=== PATIENT | female | born 1990 | race Caucasian/White ===

== ENCOUNTER 2017-09-18 10:53 | Inpatient (IN) | payer MEDICAID ==
[2017-09-18] MEDS ORDERED: Lactated Ringers 1,000 ML IV ONE (11:45)
[2017-09-18] MEDS ORDERED: Sodium Chloride 0.9% 10 ML Syringe FLUSH PRN (11:58)
[2017-09-18] MEDS ORDERED: Nalbuphine 10 MG/1 ML Vial IVPUSH PRN (12:29)
[2017-09-18] MEDS ORDERED: Ampicillin 2 GM in Sodium Chloride 0.9% 100 ML IV ONE (12:30)
--- NOTE | 2017-09-18 12:39 | PCM.HP ---
H&P History of Present Illness - General Date of Service: 09/18/17 Admit Problem/Dx: Admission Diagnosis/Problem Admission Diagnosis/Problem labor Source of Information: Patient History Limitations: Reports: No Limitations - History of Present Illness Initial Comments - Free Text/Narative: This a 26-year-old G4 para 3 currently with a due date from ultrasound 122/ which makes her 36 weeks and 4 days. She came in last night with abdominal pain. She was examined she was not denice and her cervix is 4 cm. She was given some morphine sent home. She says she was better and then today started to come back in with cramping and abdominal pain. She denies any vaginal bleeding. She says the baby is moving less than before. She is a one pack-a-day smoker. He doesn't not remember what labor felt like. The contractions are rhythmic. Uterine Pain Score (Numeric/FACES): 8 - Related Data Allergies/Adverse Reactions: Allergies Allergy/AdvReac Type Severity Reaction Status Date / Time No Known Allergies Allergy Verified 10/22/16 21:33 Home Medications: Home Meds Ibuprofen 800 mg PO Q8HR #30 tablet 05/30/15 [Rx] Amoxicillin/Potassium Clav [Augmentin 875-125 Tablet] 1 each PO BID #20 tablet 10/22/16 [Rx] Gabapentin [Neurontin] 600 mg PO DAILY 10/22/16 [History] buPROPion [Wellbutrin] 75 mg PO BEDTIME 10/22/16 [History] Past Medical History - Past Health History Medical/Surgical History: Denies Medical/Surgical History 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: smokes [employer] History: Reports: Psychiatric History: Reports: ADHD, Anxiety, Bipolar, Depression, PTSD Other Dermatologic History: 5 tattoos to the body surface Social & Family History - Family History Family Medical History: Noncontributory - Tobacco Use Smoking Status *Q: Current Every Day Smoker Years of Tobacco use: 10 Packs/Tins Daily: 1 Used Tobacco, but Quit: No Second Hand Smoke Exposure: Yes - Caffeine Use Caffeine Use: Reports: Coffee Other Caffeine Use: 2 cups of coffee - Alcohol Use Days Per Week of Alcohol Use: 1 Number of Drinks Per Day: 1 Total Drinks Per Week: 1 Date of Last Drink: 09/17/17 Time of Last Drink: 20:00 - Recreational Drug Use Recreational Drug Use: Yes Drug Use in Last 12 Months: No Recreational Drug Type: Reports: Marijuana/Hashish Other Recreational Drug Type: Pt reports she hasn't used in 3 years Recreational Drug Use Frequency: Not Used In Over 6 Months Recreational Drug Last Use: 4 - Living Situation & Occupation Living situation: Reports: Single Occupation: Employed H&P Review of Systems - Review of Systems: Review Of Systems: See Below General: Reports: No Symptoms HEENT: Reports: No Symptoms Pulmonary: Reports: No Symptoms Cardiovascular: Reports: No Symptoms Gastrointestinal: Reports: Other (See history of present illness) Genitourinary: Reports: No Symptoms Musculoskeletal: Reports: No Symptoms Psychiatric: Reports: Depression, Anxiety Neurological: Reports: No Symptoms Exam - Exam Exam: See Below - Vital Signs Vital Signs: Last Vital Signs Temp 97.1 F 09/18/17 11:02 Pulse 90 09/18/17 11:02 Resp 16 09/18/17 11:02 BP 115/70 09/18/17 11:02 Pulse Ox 98 09/18/17 11:02 Weight: 140 lb - Exam General: Alert, Oriented, Cooperative, Moderate Distress HEENT: Other (Head normocephalic/atraumatic) Neck: Supple Lungs: Clear to Auscultation, Normal Respiratory Effort Cardiovascular: Regular Rate, Regular Rhythm, Normal S1 GI/Abdominal Exam: Other (Abdomen is gravid. Not able to locate position at this time.) (Female) Exam: Other (Cervix-3/70/-3.) Back Exam: Normal Inspection, Full Range of Motion Extremities: No Pedal Edema Skin: Warm, Dry, Intact Neurological: Normal Speech, Normal Tone Neuro Extensive - Mental Status: Alert, Oriented x3, Normal Cognition, Memory Intact Neuro Extensive - Motor, Sensory, Reflexes: Normal Gait Psychiatric: Alert *Q Meaningful Use (ADM) - VTE *Q VTE Criteria *Q: - Stroke *Q Stroke Criteria *Q: - AMI *Q AMI Criteria *Q: - Problem List (1) Uterine contractions SNOMED Code(s): 232956799 ICD Code: [id number] - Status: Acute Current Visit: No Problem Details: delivered yesterday Problem List Initiated/Reviewed/Updated: Yes Orders Last 24hrs: Active Orders 24 hr Category Date Time Status Admission Status [Patient Status] [ADT] Routine ADT 09/18/17 10:58 Active CBC WITH AUTO DIFF [HEME] Routine Lab 09/18/17 12:32 Ordered CULTURE GROUP B STREP [RM] Routine Lab 09/18/17 12:32 Uncollected Ampicillin 1 gm Med 09/18/17 16:00 Active Sodium Chloride 0.9% [Normal Saline] 100 ml IV Q4H Ampicillin 2 gm Med 09/18/17 12:30 Active Sodium Chloride 0.9% [Normal Saline] 100 ml IV ONETIME Lactated Ringers [Ringers, Lactated] 1,000 ml Med 09/18/17 11:45 Active IV BOLUS Nalbuphine [Nubain] Med 09/18/17 12:29 Active 10 mg IVPUSH Q3H PRN Sodium Chloride 0.9% [Saline Flush] Med 09/18/17 11:58 Active 10 ml FLUSH ASDIRECTED PRN Peripheral IV Insertion Adult [OM.PC] Routine Oth 09/18/17 11:58 Ordered Medication Orders Lactated Ringer's (Ringers, Lactated) 1,000 mls @ 999 mls/hr IV BOLUS ONE Stop: 09/18/17 12:45 Ampicillin Sodium 2 gm/ Sodium (Chloride) 100 mls @ 200 mls/hr IV ONETIME ONE Stop: 09/18/17 12:59 Ampicillin Sodium 1 gm/ Sodium (Chloride) 100 mls @ 200 mls/hr IV Q4H IVANA Nalbuphine HCl (Nubain) 10 mg IVPUSH Q3H PRN PRN Reason: Pain Sodium Chloride (Saline Flush) 10 ml FLUSH ASDIRECTED PRN PRN Reason: Keep Vein Open Assessment/Plan Comment:: Multipara 36-4/7. Possible early labor. Plan is to give her some Nubain 10 mg IV every 3 hours and then recheck her cervix. It does appear that she's having a uterine rupture at this time. I do not have ultrasound available. I need to see the physician. So I will get a 1 view of the abdomen. I was able to get her ultrasound from [facility] and blood type. She also had one visit with me and I printed that off. I will order syphilis, rubella, HIV, CBC. We will check just make sure that we have coverage. Will hydrate her. Ampicillin 2 g IV and 1 g every 4 hours for beta strep prophylaxis. We will go ahead and do the beta strep anyway. If it doesn't appear that she is going to labor we will DC these orders and send her home.
[2017-09-18] MEDS ORDERED: Lactated Ringers 1,000 ML IV SCH ×2 (13:15→15:45)
[2017-09-18] MEDS ORDERED: ePHEDrine 50 MG/ML SDV IVPUSH ONE (15:37)
[2017-09-18] MEDS ORDERED: Naloxone 0.4 MG/ML SDV IVPUSH PRN ×2 (15:38→17:16)
[2017-09-18] MEDS ORDERED: fentaNYL 300 MCG in Ropivacaine 200 ML IV ONE (15:50)
[2017-09-18] MEDS ORDERED: fentaNYL 100 MCG/2 ML SDV EPIDUR ONE (15:50)
[2017-09-18] MEDS ORDERED: Ampicillin 1 GM in Sodium Chloride 0.9% 100 ML IV SCH (16:00)
--- NOTE | 2017-09-18 17:13 | PCM.PNLD ---
Labor Progress Note - VS & Meds Vital Signs: Last Vital Signs Temp 97.1 F 09/18/17 11:02 Pulse 90 09/18/17 11:02 Resp 16 09/18/17 11:02 BP 115/70 09/18/17 11:02 Pulse Ox 98 09/18/17 11:02 Active Medications: Current Medications Ampicillin Sodium 1 gm/ Sodium (Chloride) 100 mls @ 200 mls/hr IV Q4H IVANA Last Admin: 09/18/17 15:52 Dose: 200 mls/hr Lactated Ringer's (Ringers, Lactated) 1,000 mls @ 125 mls/hr IV ASDIRECTED IVANA Last Admin: 09/18/17 15:52 Dose: 125 mls/hr Nalbuphine HCl (Nubain) 10 mg IVPUSH Q3H PRN PRN Reason: Pain Last Admin: 09/18/17 13:31 Dose: 10 mg Naloxone HCl (Narcan) 0.1 mg IVPUSH ONETIME PRN PRN Reason: Oversedation Sodium Chloride (Saline Flush) 10 ml FLUSH ASDIRECTED PRN PRN Reason: Keep Vein Open Last Admin: 09/18/17 15:53 Dose: 10 ml Discontinued Medications Ephedrine Sulfate (Ephedrine Sulfate) 5 mg IVPUSH ONETIME ONE Stop: 09/18/17 15:38 Lactated Ringer's (Ringers, Lactated) 1,000 mls @ 999 mls/hr IV BOLUS ONE Stop: 09/18/17 12:45 Last Admin: 09/18/17 11:45 Dose: 999 mls/hr Ampicillin Sodium 2 gm/ Sodium (Chloride) 100 mls @ 200 mls/hr IV ONETIME ONE Stop: 09/18/17 12:59 Last Admin: 09/18/17 13:30 Dose: 200 mls/hr Lactated Ringer's (Ringers, Lactated) 1,000 mls @ 999 mls/hr IV BOLUS IVANA Stop: 09/18/17 14:16 Last Admin: 09/18/17 13:33 Dose: 999 mls/hr - Uterine Contractions Uterine Monitoring Mode: External [place] Contraction Frequency (min): 1-2 Contraction Duration (sec): 40-70 Contraction Intensity: Moderate Uterine Resting Tone: Soft - Vaginal Exam Dilation (cm): 6 Effacement (Percent): 90 Station: 0 Cervical Position: Midposition Sterile Vaginal Exam Performed By: Caroline Alcantar - Labor Progress (Free Text) Labor Progress: Patient's cervix 6/80/0 station. Patient has declared herself as being in labor. AROM with slightly off colored amniotic fluid. I did discuss with the patient that she is 36 4/7 weeks. I told her we deliver after 36 weeks but there is a small wrist the baby would be transferred to [place]. She understands. She also wanting a cigarette. I'm trying to hold her off at this point. If she does poorly may consider a patch. Epidural was placed. She has received her antibiotics. And we DC'd [place].
[2017-09-18] MEDS ORDERED: diphenhydrAMINE 50 MG/ML SDV IVPUSH PRN (17:16)
[2017-09-18] MEDS ORDERED: ePHEDrine 50 MG/ML SDV IVPUSH PRN (17:16)
[2017-09-18] MEDS ORDERED: Promethazine 25 MG/ML SDV IV PRN (17:16)
[2017-09-18] MEDS ORDERED: Naloxone 0.4 MG in Sodium Chloride 0.9% 100 ML IV PRN (17:16)
[2017-09-18] MEDS ORDERED: Ondansetron 4 MG/2 ML SDV IVPUSH PRN (17:19)
[2017-09-18] MEDS ORDERED: Witch Hazel Medicated Pads 40/Jar TOP PRN (19:43)
[2017-09-18] MEDS ORDERED: hydrOXYzine HCl 25 MG Tab PO PRN (19:46)
--- NOTE | 2017-09-18 19:51 | PCM.DEL ---
L & D Note - General Info Date of Service: 09/18/17 - Delivery Note Labor: Spontaneous Delivery Outcome: Livebirth Presentation: Left Occiput Anterior (MONO) Nuchal Cord: None Prep: Other Anesthesia Type: Epidural Amniotic Fluid Description: Meconium Stained Episiotomy Type: None Laceration: None Placenta: Intact, Spontaneous Cord: 3 Vessels Resuscitation Needed: No : Suctioned, Warmed, [place] Used, Warmer Used - General Info Date of Service: 09/18/17 Admission Dx/Problem (Free Text): 26-year-old G4 para 3 EDC with 36 weeks and 4/7 days comes in labor. Meconium-stained fluid. GBS was not done so she was given ampicillin per protocol. Delivered a healthy baby oil with no nuchal cord. Because he was early went right to the warmer and had normal resuscitation with warming and suction. O2. - Patient Data Vitals - Most Recent: Last Vital Signs Temp 97.1 F 09/18/17 11:02 Pulse 90 09/18/17 11:02 Resp 16 09/18/17 11:02 BP 115/70 09/18/17 11:02 Pulse Ox 98 09/18/17 11:02 Weight - Most Recent: 140 lb I&O - Last 24 Hours: Intake & Output 09/18/17 09/18/17 09/18/17 06:59 14:59 22:59 Intake Total 2342 Balance 2342 Lab Results Last 24 Hours: Laboratory Results - last 24 hr 09/18/17 Range/Units 12:42 WBC 13.1 H (4.5-12.0) X10-3/uL RBC 3.37 (3.23-5.20) x10(6)uL Hgb 10.7 L (11.5-15.5) g/dL Hct 30.8 (30.0-51.3) % MCV 91.4 (80-96) fL MCH 31.8 (27.7-33.6) pg MCHC 34.8 (32.2-35.4) g/dL RDW 15.1 (11.5-15.5) % Plt Count 441 H (125-369) X10(3)uL MPV 9.4 (7.4-10.4) fL Neut % (Auto) 68.0 (46-82) % Lymph % (Auto) 24.4 (13-37) % [place] % (Auto) 6.1 (4-12) % Eos % (Auto) 1 (1.0-5.0) % Baso % (Auto) 1 (0-2) % Neut # (Auto) 8.9 H (1.6-8.3) # Lymph # (Auto) 3.2 (0.6-5.0) # [place] # (Auto) 0.8 (0.0-1.3) # Eos # (Auto) 0.1 (0.0-0.8) # Baso # (Auto) 0.1 (0.0-0.2) # Med Orders - Current: Current Medications Acetaminophen/Codeine Phosphate (Tylenol With Codeine No.3 300mg/30mg) 1 tab PO Q4H PRN PRN Reason: Pain (moderate 4-6) Diphenhydramine HCl (Benadryl) 25 mg IVPUSH ASDIRECTED PRN PRN Reason: PRURITUS Ephedrine Sulfate (Ephedrine Sulfate) 5 mg IVPUSH ASDIRECTED PRN PRN Reason: HYPOTENSION Hydroxyzine HCl (Atarax) 25 mg PO Q6H PRN PRN Reason: Anxiety Naloxone HCl 0.4 mg/ Sodium (Chloride) 101 mls @ 25 mls/hr IV ASDIRECTED PRN PRN Reason: PER ORDER OF ANESTHESIA Ibuprofen (Motrin) 800 mg PO Q8H IVANA Naloxone HCl (Narcan) 0.1 mg IVPUSH ONETIME PRN PRN Reason: Oversedation Naloxone HCl (Narcan) 0.1 mg IVPUSH ASDIRECTED PRN PRN Reason: RESPIRATORY STATUS Nicotine (Habitrol) 21 mg TRDERM DAILY IVANA Ondansetron HCl (Zofran) 4 mg IVPUSH Q6H PRN PRN Reason: NAUSEA/VOMITING Promethazine HCl (Phenergan) 6.25 - 12.5 mg IV Q4H PRN PRN Reason: NAUSEA AND VOMITING Sodium Chloride (Saline Flush) 10 ml FLUSH ASDIRECTED PRN PRN Reason: Keep Vein Open Last Admin: 09/18/17 15:53 Dose: 10 ml Witch Wendy (Tucks) 1 pad TOP ASDIRECTED PRN PRN Reason: Hemorrhoids Discontinued Medications Ephedrine Sulfate (Ephedrine Sulfate) 5 mg IVPUSH ONETIME ONE Stop: 09/18/17 15:38 Lactated Ringer's (Ringers, Lactated) 1,000 mls @ 999 mls/hr IV BOLUS ONE Stop: 09/18/17 12:45 Last Admin: 09/18/17 11:45 Dose: 999 mls/hr Ampicillin Sodium 2 gm/ Sodium (Chloride) 100 mls @ 200 mls/hr IV ONETIME ONE Stop: 09/18/17 12:59 Last Admin: 09/18/17 13:30 Dose: 200 mls/hr Ampicillin Sodium 1 gm/ Sodium (Chloride) 100 mls @ 200 mls/hr IV Q4H IVANA Last Admin: 09/18/17 15:52 Dose: 200 mls/hr Lactated Ringer's (Ringers, Lactated) 1,000 mls @ 999 mls/hr IV BOLUS IVANA Stop: 09/18/17 14:16 Last Admin: 09/18/17 13:33 Dose: 999 mls/hr Lactated Ringer's (Ringers, Lactated) 1,000 mls @ 125 mls/hr IV ASDIRECTED IVANA Last Admin: 09/18/17 15:52 Dose: 125 mls/hr Nalbuphine HCl (Nubain) 10 mg IVPUSH Q3H PRN PRN Reason: Pain Last Admin: 09/18/17 13:31 Dose: 10 mg - Problem List & Annotations (1) Vaginal delivery SNOMED Code(s): 572168910 Code(s): O80 - ENCOUNTER FOR FULL-TERM UNCOMPLICATED DELIVERY Status: Acute Current Visit: Yes (2) delivery Status: Acute Current Visit: Yes - Problem List Review Problem List Initiated/Reviewed/Updated: Yes - My Orders Last 24 Hours: My Active Orders 09/18/17 10:58 Admission Status [Patient Status] [ADT] Routine 09/18/17 11:58 Sodium Chloride 0.9% [Saline Flush] 10 ml FLUSH ASDIRECTED PRN Peripheral IV Insertion Adult [OM.PC] Routine 09/18/17 12:39 Abdomen 1V Flat [CR] Routine 09/18/17 12:42 HEPATITIS B CORE,AB TOTAL [REF] Routine HIV 1/2 AB DIFFERENTIATION [REF] Routine RPR-TREP PALLIDIUM AB,REFLEX [REF] Routine RUBELLA AB, IGM [REF] Routine 09/18/17 14:29 CULTURE GROUP B STREP [RM] Routine 09/18/17 15:38 Naloxone [Narcan] 0.1 mg IVPUSH ONETIME PRN 09/18/17 19:43 Patient Status [ADT] Routine May Shower [RC] ASDIRECTED Up ad Britta [RC] ASDIRECTED Vital Signs [RC] PFP Consult to [id number] Lead [CONS] Routine Acetaminophen/Codeine [Tylenol with Codeine No.3 300MG/30MG] 1 tab PO Q4H PRN Witch Wendy [Tucks] 1 pad TOP ASDIRECTED PRN Assess Lochia [WOMSER] Per Unit Routine Assess Uterine Involution [WOMSER] Per Unit Routine Resuscitation Status Routine 09/18/17 19:44 Ice Therapy [OM.PC] Per Unit Routine Perineal Care [OM.PC] Per Unit Routine Peripheral IV Discontinue [OM.PC] Routine Sitz Bath [OM.PC] Per Unit Routine 09/18/17 19:45 Ibuprofen [Motrin] 800 mg PO Q8H 09/18/17 19:46 hydrOXYzine HCl [Atarax] 25 mg PO Q6H PRN 09/18/17 20:00 Nicotine [Habitrol] 21 mg TRDERM DAILY 09/19/17 05:11 HEMOGLOBIN/HEMATOCRIT,HH [HEME] AM - Plan Plan:: Normal care. Hydroxyzine 25 mg every 6 hours when necessary anxiety. Nicotine patch 21 g daily.
[2017-09-18] MEDS ORDERED: Nicotine 21 MG/24 Hr Patch TRDERM SCH (20:00)
[2017-09-18] MEDS: Ibuprofen 800 MG Tab PO SCH (20:16)
[2017-09-18] MEDS ORDERED: LORazepam 0.5 MG Tab PO ONE (20:39)
[2017-09-18] MEDS: Acetaminophen/Codeine 300-30 MG Tab PO PRN (22:09)
[2017-09-19] MEDS: Acetaminophen/Codeine 300-30 MG Tab PO PRN ×2 (02:23→07:04)
[2017-09-19] MEDS: Ibuprofen 800 MG Tab PO SCH ×2 (04:05→15:09)
--- NOTE | 2017-09-19 08:18 | PCM.PNPP ---
- General Info Date of Service: 09/19/17 Admission Dx/Problem (Free Text): Patient's bleeding is slowing. She has some hip pain but no leg swelling. - Patient Data Vital Signs - Most Recent: Last Vital Signs Temp 98.1 F 09/19/17 06:00 Pulse 80 09/19/17 06:00 Resp 16 09/19/17 06:00 BP 108/56 L 09/19/17 06:00 Pulse Ox 98 09/19/17 06:00 Weight - Most Recent: 140 lb I&O - Last 24 Hours: Intake & Output 09/18/17 09/19/17 09/19/17 22:59 06:59 14:59 Intake Total 3027 Balance 3027 Lab Results - Last 24 Hours: Laboratory Results - last 24 hr 09/18/17 09/19/17 Range/Units 12:42 06:15 WBC 13.1 H (4.5-12.0) X10-3/uL RBC 3.37 (3.23-5.20) x10(6)uL Hgb 10.7 L 10.4 L (11.5-15.5) g/dL Hct 30.8 30.7 (30.0-51.3) % MCV 91.4 (80-96) fL MCH 31.8 (27.7-33.6) pg MCHC 34.8 (32.2-35.4) g/dL RDW 15.1 (11.5-15.5) % Plt Count 441 H (125-369) X10(3)uL MPV 9.4 (7.4-10.4) fL Neut % (Auto) 68.0 (46-82) % Lymph % (Auto) 24.4 (13-37) % [place] % (Auto) 6.1 (4-12) % Eos % (Auto) 1 (1.0-5.0) % Baso % (Auto) 1 (0-2) % Neut # (Auto) 8.9 H (1.6-8.3) # Lymph # (Auto) 3.2 (0.6-5.0) # [place] # (Auto) 0.8 (0.0-1.3) # Eos # (Auto) 0.1 (0.0-0.8) # Baso # (Auto) 0.1 (0.0-0.2) # Med Orders - Current: Current Medications Acetaminophen/Codeine Phosphate (Tylenol With Codeine No.3 300mg/30mg) 1 tab PO Q4H PRN PRN Reason: Pain (moderate 4-6) Last Admin: 09/19/17 07:04 Dose: 1 tab Diphenhydramine HCl (Benadryl) 25 mg IVPUSH ASDIRECTED PRN PRN Reason: PRURITUS Ephedrine Sulfate (Ephedrine Sulfate) 5 mg IVPUSH ASDIRECTED PRN PRN Reason: HYPOTENSION Hydroxyzine HCl (Atarax) 25 mg PO Q6H PRN PRN Reason: Anxiety Naloxone HCl 0.4 mg/ Sodium (Chloride) 101 mls @ 25 mls/hr IV ASDIRECTED PRN PRN Reason: PER ORDER OF ANESTHESIA Ibuprofen (Motrin) 800 mg PO Q8H IVANA Last Admin: 09/19/17 04:05 Dose: 800 mg Naloxone HCl (Narcan) 0.1 mg IVPUSH ONETIME PRN PRN Reason: Oversedation Naloxone HCl (Narcan) 0.1 mg IVPUSH ASDIRECTED PRN PRN Reason: RESPIRATORY STATUS Nicotine (Habitrol) 21 mg TRDERM Q24H IVANA Ondansetron HCl (Zofran) 4 mg IVPUSH Q6H PRN PRN Reason: NAUSEA/VOMITING Promethazine HCl (Phenergan) 6.25 - 12.5 mg IV Q4H PRN PRN Reason: NAUSEA AND VOMITING Sodium Chloride (Saline Flush) 10 ml FLUSH ASDIRECTED PRN PRN Reason: Keep Vein Open Last Admin: 09/18/17 15:53 Dose: 10 ml Witch Wendy (Tucks) 1 pad TOP ASDIRECTED PRN PRN Reason: Hemorrhoids Discontinued Medications Ephedrine Sulfate (Ephedrine Sulfate) 5 mg IVPUSH ONETIME ONE Stop: 09/18/17 15:38 Last Admin: 09/18/17 20:11 Dose: Not Given Lactated Ringer's (Ringers, Lactated) 1,000 mls @ 999 mls/hr IV BOLUS ONE Stop: 09/18/17 12:45 Last Admin: 09/18/17 11:45 Dose: 999 mls/hr Ampicillin Sodium 2 gm/ Sodium (Chloride) 100 mls @ 200 mls/hr IV ONETIME ONE Stop: 09/18/17 12:59 Last Admin: 09/18/17 13:30 Dose: 200 mls/hr Ampicillin Sodium 1 gm/ Sodium (Chloride) 100 mls @ 200 mls/hr IV Q4H [facility] Last Admin: 09/18/17 15:52 Dose: 200 mls/hr Lactated Ringer's (Ringers, Lactated) 1,000 mls @ 999 mls/hr IV BOLUS IVANA Stop: 09/18/17 14:16 Last Admin: 09/18/17 13:33 Dose: 999 mls/hr Lactated Ringer's (Ringers, Lactated) 1,000 mls @ 125 mls/hr IV ASDIRECTED [facility] Last Admin: 09/18/17 15:52 Dose: 125 mls/hr Lorazepam (Ativan) 0.5 mg PO ONETIME ONE Stop: 09/18/17 20:40 Last Admin: 09/18/17 20:46 Dose: 0.5 mg Nalbuphine HCl (Nubain) 10 mg IVPUSH Q3H PRN PRN Reason: Pain Last Admin: 09/18/17 13:31 Dose: 10 mg Nicotine (Habitrol) 21 mg TRDERM DAILY [facility] Last Admin: 09/18/17 20:16 Dose: 21 mg - Infant Interaction Disposition, : in Room with Family Support Person: Significant Other - Recovery Exam Fundal Tone: Firm Fundal Level: 1 Fingerbreadths Above Umbilicus Fundal Placement: Midline Lochia Amount: Moderate Lochia Color: Rubra/Red Perineum Description: Intact, Minimal Bruising/Swelling Episiotomy/Laceration: None Bladder Status: Voiding - Exam General: Alert, Oriented, Cooperative Lungs: Normal Respiratory Effort GI/Abdominal Exam: Other (Fundus firm) Extremities: No Pedal Edema - Problem List & Annotations (1) Vaginal delivery SNOMED Code(s): 222319578 Code(s): O80 - ENCOUNTER FOR FULL-TERM UNCOMPLICATED DELIVERY Status: Acute Current Visit: Yes (2) delivery Status: Acute Current Visit: Yes - Problem List Review Problem List Initiated/Reviewed/Updated: Yes - My Orders Last 24 Hours: My Active Orders 09/18/17 10:58 Admission Status [Patient Status] [ADT] Routine 09/18/17 11:58 Sodium Chloride 0.9% [Saline Flush] 10 ml FLUSH ASDIRECTED PRN Peripheral IV Insertion Adult [OM.PC] Routine 09/18/17 12:39 Abdomen 1V Flat [CR] Routine 09/18/17 12:42 HEPATITIS B CORE,AB TOTAL [REF] Routine HIV 1/2 AB DIFFERENTIATION [REF] Routine RPR-TREP PALLIDIUM AB,REFLEX [REF] Routine RUBELLA AB, IGM [REF] Routine 09/18/17 14:29 CULTURE GROUP B STREP [RM] Routine 09/18/17 15:38 Naloxone [Narcan] 0.1 mg IVPUSH ONETIME PRN 09/18/17 19:43 Patient Status [ADT] Routine May Shower [RC] ASDIRECTED Up ad Britta [RC] ASDIRECTED Vital Signs [RC] PFP Consult to Supervisor Building Maintenance [CONS] Routine Acetaminophen/Codeine [Tylenol with Codeine No.3 300MG/30MG] 1 tab PO Q4H PRN Witch Wendy [Tucks] 1 pad TOP ASDIRECTED PRN Assess Lochia [WOMSER] Per Unit Routine Assess Uterine Involution [WOMSER] Per Unit Routine Resuscitation Status Routine 09/18/17 19:44 Ice Therapy [OM.PC] Per Unit Routine Perineal Care [OM.PC] Per Unit Routine Peripheral IV Discontinue [OM.PC] Routine Sitz Bath [OM.PC] Per Unit Routine 09/18/17 19:46 hydrOXYzine HCl [Atarax] 25 mg PO Q6H PRN 09/18/17 20:00 Ibuprofen [Motrin] 800 mg PO Q8H 09/19/17 20:00 Nicotine [Habitrol] 21 mg TRDERM Q24H - Plan Plan:: Patient wants to go home because she was not able to smoker. I will discharge her this morning and discharge the baby at 8 PM tonight after the baby's been here for 24 hours. She should follow-up in 6 weeks for check.
[2017-09-19 08:22] VITALS: BP 114/65
--- NOTE | 2017-09-19 08:24 | PCM.DCSUM1 ---
Discharge Summary - Hospital Course HPI Initial Comments: Split course-patient was found to be in labor. As I preemptively gave her ampicillin I did order her labs that will not be back including a beta strep. She was AROM and had meconium-stained fluid. Delivered a healthy baby. Little shoulder dystocia mostly because she wasn't pushing and we reduced it Harrison's. Patient wants to go home because she wants to smoke and she can't do with being here and not smoking. So I told her the baby needs to stay for 24 hours. I'll send her home was some ibuprofen and she'll take [id number] and Tylenol No. 3. Recheck in 6 weeks for check. Hemoglobin was above 10 today. Brief History: This a 26-year-old G4 para 3 currently with a due date from ultrasound which makes her 36 weeks and 4 days. She came in last night with abdominal pain. She was examined she was not denice and her cervix is 4 cm. She was given some morphine sent home. She says she was better and then today started to come back in with cramping and abdominal pain. She denies any vaginal bleeding. She says the baby is moving less than before. She is a one pack-a-day smoker. He doesn't not remember what labor felt like. The contractions are rhythmic. - Discharge Data Discharge Date: 09/19/17 Discharge Disposition: Home, Self-Care 01 Condition: Good - Discharge Diagnosis/Problem(s) (1) Vaginal delivery SNOMED Code(s): 645636320 ICD Code: O80 - ENCOUNTER FOR FULL-TERM UNCOMPLICATED DELIVERY Status: Acute Current Visit: Yes (2) delivery Status: Acute Current Visit: Yes (3) Tobacco dependence syndrome SNOMED Code(s): 05024584 ICD Code: F17.200 - NICOTINE DEPENDENCE, UNSPECIFIED, UNCOMPLICATED Status : Acute Priority: Medium Current Visit: No Problem Details: Discussed importance of cessation and offered a nicotine replacement patch for here at discharge. She accepts. - Patient Summary/Data Consults: Consultations 09/18/17 19:43 Consult to Clinical Project Assistant [CONS] Routine Comment: Physician Instructions: - Patient Instructions Diet: Regular Diet as Tolerated Activity: As Tolerated Driving: May Drive Today Showering/Bathing: May Shower Notify Provider of: Fever, Increased Pain, Drainage Other/Special Instructions: 1. Recheck in 6 weeks for care. - Discharge Plan Prescriptions/Med Rec: Acetaminophen/Codeine [Tylenol with Codeine No.3 300MG/30MG] 1 tab PO Q4H PRN # 15 tablet PRN Reason: Pain (Moderate 4-6) Home Medications: Home Meds Ibuprofen 800 mg PO Q8HR #30 tablet 05/30/15 [Rx] Gabapentin [Neurontin] 600 mg PO DAILY 10/22/16 [History] Acetaminophen/Codeine [Tylenol with Codeine No.3 300MG/30MG] 1 tab PO Q4H PRN # 15 tablet 09/19/17 [Rx] hydrOXYzine HCl [hydrOXYzine] 25 mg PO Q6H PRN tablet 09/19/17 [Rx] Patient Handouts: Shaken Baby Syndrome, Infant Formula Feeding, How To Prepare Infant Formula, Circumcision, , Care After, [id number], Hand Washing, [id number], [place] Baby Care, Home Care Instructions for Mom, Vaginal Delivery, Care After, SIDS Prevention Information, Baby Safe Sleeping Information, [id number], Care After Vaginal Delivery, Jaundice, , [id number] - Discharge Summary/Plan Comment DC Time >30 min.: No - Patient Data Vitals - Most Recent: Last Vital Signs Temp 97.9 F 09/19/17 08:21 Pulse 89 09/19/17 08:21 Resp 18 09/19/17 08:21 BP 114/65 09/19/17 08:21 Pulse Ox 98 09/19/17 06:00 Weight - Most Recent: 140 lb I&O - Last 24 hours: Intake & Output 09/18/17 09/19/17 09/19/17 22:59 06:59 14:59 Intake Total 3027 Balance 3027 Lab Results - Last 24 hrs: Laboratory Results - last 24 hr 09/18/17 09/19/17 Range/Units 12:42 06:15 WBC 13.1 H (4.5-12.0) X10-3/uL RBC 3.37 (3.23-5.20) x10(6)uL Hgb 10.7 L 10.4 L (11.5-15.5) g/dL Hct 30.8 30.7 (30.0-51.3) % MCV 91.4 (80-96) fL MCH 31.8 (27.7-33.6) pg MCHC 34.8 (32.2-35.4) g/dL RDW 15.1 (11.5-15.5) % Plt Count 441 H (125-369) X10(3)uL MPV 9.4 (7.4-10.4) fL Neut % (Auto) 68.0 (46-82) % Lymph % (Auto) 24.4 (13-37) % Troup % (Auto) 6.1 (4-12) % Eos % (Auto) 1 (1.0-5.0) % Baso % (Auto) 1 (0-2) % Neut # (Auto) 8.9 H (1.6-8.3) # Lymph # (Auto) 3.2 (0.6-5.0) # Troup # (Auto) 0.8 (0.0-1.3) # Eos # (Auto) 0.1 (0.0-0.8) # Baso # (Auto) 0.1 (0.0-0.2) # Med Orders - Current: Current Medications Acetaminophen/Codeine Phosphate (Tylenol With Codeine No.3 300mg/30mg) 1 tab PO Q4H PRN PRN Reason: Pain (moderate 4-6) Last Admin: 09/19/17 07:04 Dose: 1 tab Diphenhydramine HCl (Benadryl) 25 mg IVPUSH ASDIRECTED PRN PRN Reason: PRURITUS Ephedrine Sulfate (Ephedrine Sulfate) 5 mg IVPUSH ASDIRECTED PRN PRN Reason: HYPOTENSION Hydroxyzine HCl (Atarax) 25 mg PO Q6H PRN PRN Reason: Anxiety Naloxone HCl 0.4 mg/ Sodium (Chloride) 101 mls @ 25 mls/hr IV ASDIRECTED PRN PRN Reason: PER ORDER OF ANESTHESIA Ibuprofen (Motrin) 800 mg PO Q8H [facility] Last Admin: 09/19/17 04:05 Dose: 800 mg Naloxone HCl (Narcan) 0.1 mg IVPUSH ONETIME PRN PRN Reason: Oversedation Naloxone HCl (Narcan) 0.1 mg IVPUSH ASDIRECTED PRN PRN Reason: RESPIRATORY STATUS Nicotine (Habitrol) 21 mg TRDERM Q24H IVANA Ondansetron HCl (Zofran) 4 mg IVPUSH Q6H PRN PRN Reason: NAUSEA/VOMITING Promethazine HCl (Phenergan) 6.25 - 12.5 mg IV Q4H PRN PRN Reason: NAUSEA AND VOMITING Sodium Chloride (Saline Flush) 10 ml FLUSH ASDIRECTED PRN PRN Reason: Keep Vein Open Last Admin: 09/18/17 15:53 Dose: 10 ml Witch Wendy (Tucks) 1 pad TOP ASDIRECTED PRN PRN Reason: Hemorrhoids Discontinued Medications Ephedrine Sulfate (Ephedrine Sulfate) 5 mg IVPUSH ONETIME ONE Stop: 09/18/17 15:38 Last Admin: 09/18/17 20:11 Dose: Not Given Lactated Ringer's (Ringers, Lactated) 1,000 mls @ 999 mls/hr IV BOLUS ONE Stop: 09/18/17 12:45 Last Admin: 09/18/17 11:45 Dose: 999 mls/hr Ampicillin Sodium 2 gm/ Sodium (Chloride) 100 mls @ 200 mls/hr IV ONETIME ONE Stop: 09/18/17 12:59 Last Admin: 09/18/17 13:30 Dose: 200 mls/hr Ampicillin Sodium 1 gm/ Sodium (Chloride) 100 mls @ 200 mls/hr IV Q4H [facility] Last Admin: 09/18/17 15:52 Dose: 200 mls/hr Lactated Ringer's (Ringers, Lactated) 1,000 mls @ 999 mls/hr IV BOLUS IVANA Stop: 09/18/17 14:16 Last Admin: 09/18/17 13:33 Dose: 999 mls/hr Lactated Ringer's (Ringers, Lactated) 1,000 mls @ 125 mls/hr IV ASDIRECTED IVANA Last Admin: 09/18/17 15:52 Dose: 125 mls/hr Lorazepam (Ativan) 0.5 mg PO ONETIME ONE Stop: 09/18/17 20:40 Last Admin: 09/18/17 20:46 Dose: 0.5 mg Nalbuphine HCl (Nubain) 10 mg IVPUSH Q3H PRN PRN Reason: Pain Last Admin: 09/18/17 13:31 Dose: 10 mg Nicotine (Habitrol) 21 mg TRDERM DAILY [facility] Last Admin: 09/18/17 20:16 Dose: 21 mg *Q Meaningful Use (DIS) - VTE *Q VTE Criteria *Q: - Stroke *Q Stroke Criteria *Q: - AMI *Q AMI Criteria *Q:
--- NOTE | 2017-09-19 12:07 | CR ---
INDICATION: Assess head position. Ultrasound not available. KUB: There is a single fetus in cephalic presentation, spine on the mothers left. MTDD
[2017-09-19] MEDS ORDERED: Nicotine 21 MG/24 Hr Patch TRDERM SCH (20:00)
== END 2017-09-19 09:40 | disposition home or self-care (01) | DRG 775 ==
LOC: FB.OB 10:53 → FB.OBCHECK 10:53 → FB.OB 17:03 → FB.OBCHECK 17:13 → FB.OB 09-19 13:14
PROVIDERS: ADMIT Family Medicine; ATTEND Family Medicine
PROC: 10E0XZZ Delivery of Products of Conception, External Approach (ICD-10-PCS; principal; 2017-09-18)
PROC: 10907ZC Drainage of Amniotic Fluid, Therapeutic from Products of Conception, Via Natural or Artificial Opening (ICD-10-PCS; 2017-09-18)
PROC: 00HU33Z Insertion of Infusion Device into Spinal Canal, Percutaneous Approach (ICD-10-PCS; 2017-09-18)
PROC: 3E0R3BZ Introduction of Anesthetic Agent into Spinal Canal, Percutaneous Approach (ICD-10-PCS; 2017-09-18)
DX: O60.14X0 Preterm labor third trimester with preterm delivery third trimester, not applicable or unspecified (principal); Z3A.36 36 weeks gestation of pregnancy; Z37.0 Single live birth; O99.334 Smoking (tobacco) complicating childbirth; F17.210 Nicotine dependence, cigarettes, uncomplicated
CPT/HCPCS: 36415; 59409; 74000; 85014; 85018; 85025; 86701; 86702; 86704; 86762; 86780; 87081; 99211; A9270-GY; J0290; J2300; J2795; J3010; J7030; J7050; J7120

== ENCOUNTER 2019-04-07 11:40 | Emergency (ER) | payer MEDICAID ==
[2019-04-07 12:03] VITALS: BP 113/63
--- NOTE | 2019-04-07 12:17 | EDM.PDOC ---
ED HPI GENERAL MEDICAL PROBLEM - General Chief Complaint: ENT Problem Time Seen by Provider: 04/07/19 12:11 Source of Information: Reports: Patient History Limitations: Reports: No Limitations - History of Present Illness INITIAL COMMENTS - FREE TEXT/NARRATIVE: Presents with left lower dental pain after eating almonds, patient believes she may have cracked a tooth. Taking Ibuprofen w/o improvement. Onset Date: 04/06/19 Quality: Reports: Dull Severity: Moderate Treatments BAG LOADER: Reports: NSAIDS Left Lower Tooth/Teeth Pain Score (Numeric/FACES): 8 - Related Data Allergies Allergy/AdvReac Type Severity Reaction Status Date / Time No Known Allergies Allergy Verified 10/22/16 21:33 Home Meds: Home Meds Ibuprofen 800 mg PO Q8HR #30 tablet 05/30/15 [Rx] ClonazePAM [KlonoPIN] 0.5 mg PO BID PRN 04/07/19 [History] Gabapentin [Neurontin] 600 mg PO TID 04/07/19 [History] Penicillin V Potassium 500 mg PO QID #40 tab 04/07/19 [Rx] traMADol [Ultram] 50 - 100 mg PO Q6H PRN #20 tab 04/07/19 [Rx] Past Medical History 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: 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: Psychiatric History: Reports: ADHD, Anxiety, Bipolar, Depression, PTSD Other Dermatologic History: 5 tattoos to the body surface Social & Family History - Family History Family Medical History: Noncontributory - Tobacco Use Smoking Status *Q: Current Every Day Smoker Years of Tobacco use: 12 Packs/Tins Daily: 0.5 - Caffeine Use Caffeine Use: Reports: Coffee Other Caffeine Use: 2 cups of coffee - Recreational Drug Use Recreational Drug Use: No - Living Situation & Occupation Living situation: Reports: Single Occupation: Employed ED ROS GENERAL - Review of Systems Review Of Systems: See Below ED EXAM, GENERAL - Physical Exam Exam: See Below Exam Limited By: No Limitations General Appearance: Alert, WD/WN, No Apparent Distress Ears: Normal External Exam Nose: Normal Inspection Throat/Mouth: Other (left lower 3rd molar fracture and tenderness, no gingival or facial swelling.) Head: Atraumatic, Normocephalic Neck: Supple Respiratory/Chest: No Respiratory Distress, Lungs Clear Extremities: Normal Range of Motion Neurological: Alert, Normal Cognition, No Motor/Sensory Deficits Psychiatric: Normal Affect, Normal Mood Skin Exam: Warm, Dry, Intact Course - Vital Signs Last Recorded V/S: Last Vital Signs Temp 36.1 C 04/07/19 11:40 Pulse 99 04/07/19 11:40 Resp 18 04/07/19 11:40 BP 113/63 04/07/19 11:40 Pulse Ox 99 04/07/19 11:40 Departure - Departure Time of Disposition: 12:15 Disposition: Home, Self-Care 01 Condition: Good Clinical Impression: Pain, dental - Discharge Information *PRESCRIPTION DRUG MONITORING PROGRAM REVIEWED*: Yes *COPY OF PRESCRIPTION DRUG MONITORING REPORT IN PATIENT JOSEMANUEL: No Prescriptions: Penicillin V Potassium 500 mg PO QID #40 tab traMADol [Ultram] 50 - 100 mg PO Q6H PRN #20 tab PRN Reason: Pain Instructions: Soft-Food Eating Plan Referrals: Eli Becerra NP [Primary Care Provider] - Forms: ED Department Discharge Additional Instructions: Fill prescriptions for Pen VK and Tramadol and take as directed. You may also take Ibuprofen as needed to control pain. Follow up with a Dentist in 2-3 days.
== END 2019-04-07 12:30 | disposition home or self-care (01) ==
LOC: FB.ED 11:40
DX: K08.89 Other specified disorders of teeth and supporting structures (principal); F31.9 Bipolar disorder, unspecified; F17.210 Nicotine dependence, cigarettes, uncomplicated; Z79.899 Other long term (current) drug therapy
CPT/HCPCS: 99282

== ENCOUNTER 2019-06-30 11:55 | Emergency (ER) | payer MEDICAID ==
--- NOTE | 2019-06-30 12:26 | EDM.PDOC ---
ED HPI GENERAL MEDICAL PROBLEM - General Stated Complaint: TOOTH PAIN Time Seen by Provider: 06/30/19 12:05 Source of Information: Reports: Patient History Limitations: Reports: No Limitations - History of Present Illness INITIAL COMMENTS - FREE TEXT/NARRATIVE: 28-year-old female with history of dental problems and multiple areas of her mouth who develops onset of pain in her right upper teeth and jaw approximately 5-6 days ago. She was seen on by a doctor at [facility] and was placed on penicillin and given tramadol for pain. She reports that she has been taking the penicillin as directed and has tried the tramadol without any relief of her pain. She reports 9/10 level of pain in her right upper jaw and teeth it seems to radiate all over the right side of her head. It is a throbbing and sharp and shooting pain. There is been no nausea or vomiting. She does have some facial swelling there. She is able to swallow normally. No trouble breathing. Chewing on the area and air hitting the teeth make the pain worse. No fevers or chills. There are no other associated signs or symptoms. There are no other modifying factors. 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: Reports: Acetaminophen, Other Medication(s) (Tramadol, penicillin) - Related Data Allergies Allergy/AdvReac Type Severity Reaction Status Date / Time No Known Allergies Allergy Verified 10/22/16 21:33 Home Meds: Home Meds Ibuprofen 800 mg PO Q8HR #30 tablet 05/30/15 [Rx] ClonazePAM [KlonoPIN] 0.5 mg PO BID PRN 04/07/19 [History] Gabapentin [Neurontin] 600 mg PO TID 04/07/19 [History] traMADol [Ultram] 50 - 100 mg PO Q6H PRN #20 tab 04/07/19 [Rx] Clindamycin HCl 300 mg PO QID 7 Days #28 capsule 06/30/19 [Rx] Hydrocodone/Acetaminophen [Pixley 5-325 Tablet] 1 - 2 tab PO Q6H PRN #8 tablet [Rx] Penicillin V Potassium 500 mg PO BID 06/30/19 [History] Past Medical History Psychiatric History: Reports: ADHD, Anxiety, Bipolar, Depression, PTSD - Past Surgical History Other Surgical History Comment: No previous surgeries. Social & Family History - Tobacco Use Smoking Status *Q: Current Every Day Smoker - Caffeine Use Caffeine Use: Reports: Coffee Other Caffeine Use: 2 cups of coffee - Alcohol Use Alcohol Use History: No - Living Situation & Occupation Living situation: Reports: Single Occupation: Employed ED ROS ENT - Review of Systems Review Of Systems: See Below Constitutional: Reports: No Symptoms HEENT: Reports: Dental Pain, Other (Right facial pain) Respiratory: Reports: No Symptoms Cardiovascular: Reports: No Symptoms Endocrine: Reports: No Symptoms GI/Abdominal: Reports: No Symptoms : Reports: No Symptoms (Patient denies any possibility of ) Musculoskeletal: Reports: No Symptoms Skin: Reports: No Symptoms Neurological: Reports: Headache Hematologic/Lymphatic: Reports: No Symptoms Immunologic: Reports: No Symptoms ED EXAM, ENT - Physical Exam Exam: See Below Exam Limited By: No Limitations General Appearance: Alert, WD/WN, Moderate Distress (Secondary to pain. No respiratory distress. Nontoxic appearing.) Eye Exam: Bilateral Eye: EOMI, Normal Inspection, PERRL Ears: Normal External Exam, Hearing Grossly Normal Nose: Normal Inspection, Normal Mucousa, No Blood Mouth/Throat: Normal Lips, Dental Pain, Dental Tenderness, Gum Swelling (Right upper gingival mucosa), Other (Or dentition) Head: Atraumatic, Normocephalic Neck: Normal Inspection, Supple, Non-Tender, Full Range of Motion Respiratory/Chest: No Respiratory Distress, Lungs Clear, Normal Breath Sounds, No Accessory Muscle Use, Chest Non-Tender Cardiovascular: Normal Peripheral Pulses, Regular Rate, Rhythm, No JVD GI/Abdominal: Normal Bowel Sounds, Soft, Non-Tender, No Mass Back: Normal Inspection, Full Range of Motion Extremities: Normal Inspection, Normal Range of Motion, Non-Tender, No Pedal Edema, Normal Capillary Refill Neurological: Alert, Oriented, CN II-XII Intact, Normal Cognition, No Motor/ Sensory Deficits Skin: Warm, Dry, Intact, Normal Color, No Rash Course - Re-Assessments/Exams Free Text/Narrative Re-Assessment/Exam: 06/30/19 12:29: Patient with right upper dental pain, come swelling and erythema with some mild swelling of her right cheek area. She does have what appears to be a dental abscess and facial cellulitis that is not apparently responding to the penicillin that she was placed on. She is getting really no relief from tramadol. I have told the patient that I would provide her with a small prescription for something stronger for pain and I will change her to clindamycin and have her stop the penicillin. I did review the patient through the [facility] website states around [place] and she has received the tramadol that she reported but no concerning history of narcotic usage. Departure - Departure Time of Disposition: 12:30 Disposition: Home, Self-Care 01 Condition: Good Clinical Impression: Dental abscess, Pain, dental, Dental caries - Discharge Information *PRESCRIPTION DRUG MONITORING PROGRAM REVIEWED*: Yes *COPY OF PRESCRIPTION DRUG MONITORING REPORT IN PATIENT JOSEMANUEL: No Prescriptions: Clindamycin HCl 300 mg PO QID 7 Days #28 capsule Hydrocodone/Acetaminophen [Pixley 5-325 Tablet] 1 - 2 tab PO Q6H PRN #8 tablet PRN Reason: Moderate to severe pain Instructions: Dental Abscess, [id number] Referrals: Eli Becerra EXECUTIVE HOUSEKEEPER [Primary Care Provider] - Additional Instructions: You have a dental abscess with some facial swelling and cellulitis associated with the abscess. You should stop the penicillin. Start the new antibiotic that I have prescribed you (clindamycin). You should take probiotics or eat yogurt daily while you are on the antibiotics. I have also given you a prescription of something stronger for for pain (hydrocodone 5/325). We would not be able to provide you with any further pain medications related to your dental pain. You need to see a dentist as soon as you can arrange. Back to the emergency department for inability to swallow liquids, trouble breathing or any other concerning sign or symptom.
[2019-06-30 12:34] VITALS: BP 109/73
== END 2019-06-30 12:41 | disposition home or self-care (01) ==
LOC: FB.ED 11:55
DX: K04.7 Periapical abscess without sinus (principal); K02.9 Dental caries, unspecified; F41.9 Anxiety disorder, unspecified; F32.9 Major depressive disorder, single episode, unspecified; F17.200 Nicotine dependence, unspecified, uncomplicated; Z79.899 Other long term (current) drug therapy
CPT/HCPCS: 99282

== ENCOUNTER 2019-12-20 14:59 | Emergency (ER) | payer MEDICAID ==
[2019-12-20 15:23] VITALS: BP 133/69; PULSE 102
[2019-12-20] MEDS ORDERED: Lidocaine 2% Viscous Solution 15 ML Cup PO ONE (15:27)
[2019-12-20] MEDS ORDERED: Ketorolac 60 MG/2 ML SDV IM ONE (15:39)
--- NOTE | 2019-12-20 15:52 | EDM.PDOC ---
ED HPI GENERAL MEDICAL PROBLEM - General Chief Complaint: General Stated Complaint: TOOTH PAIN Time Seen by Provider: 12/20/19 15:20 Source of Information: Reports: Patient History Limitations: Reports: No Limitations - History of Present Illness INITIAL COMMENTS - FREE TEXT/NARRATIVE: Patient presented to the ED because of dental pain which started 2 days ago. She is taking TC pain medication which is not helping according to her. - Related Data Allergies Allergy/AdvReac Type Severity Reaction Status Date / Time No Known Allergies Allergy Verified 12/20/19 15:22 Home Meds: Home Meds Ibuprofen 800 mg PO Q8HR #30 tablet 05/30/15 [Rx] ClonazePAM [KlonoPIN] 0.5 mg PO BID PRN 04/07/19 [History] Gabapentin [Neurontin] 600 mg PO TID 04/07/19 [History] Ketorolac [Toradol] 10 mg PO Q8H PRN #15 tab 12/20/19 [Rx] Past Medical History HEENT History: Reports: Impaired Vision AUTOMATION QA ANALYST History: Reports: , Therapeutic Other AUTOMATION QA ANALYST History: Musculoskeletal History: Reports: Fracture Other Musculoskeletal History: hx fx R gt toe Psychiatric History: Reports: ADHD, Addiction, Anxiety, Bipolar, Depression, PTSD, Suicide Attempt, Other (See Below) Other Psychiatric History: 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 Other Dermatologic History: 5 tattoos to the body surface - Infectious Disease History Infectious Disease History: Reports: Chicken Pox - Past Surgical History HEENT Surgical History: Reports: Oral Surgery Musculoskeletal Surgical History: Reports: None Social & Family History - Family History Family Medical History: Noncontributory - Tobacco Use Smoking Status *Q: Current Every Day Smoker Years of Tobacco use: 13 Packs/Tins Daily: 1 - Caffeine Use Caffeine Use: Reports: Coffee, Energy Drinks, Soda Other Caffeine Use: 2 cups of coffee - Recreational Drug Use Recreational Drug Use: Yes Drug Use in Last 12 Months: No Recreational Drug Type: Reports: Methamphetamine - Living Situation & Occupation Living situation: Reports: Single Occupation: Employed ED ROS GENERAL - Review of Systems Review Of Systems: See Below Constitutional: Reports: No Symptoms HEENT: Reports: Dental Pain Respiratory: Reports: No Symptoms Cardiovascular: Reports: No Symptoms GI/Abdominal: Reports: No Symptoms : Reports: No Symptoms Musculoskeletal: Reports: No Symptoms Skin: Reports: No Symptoms Neurological: Reports: No Symptoms Psychiatric: Reports: No Symptoms ED EXAM, GENERAL - Physical Exam Exam: See Below Exam Limited By: No Limitations General Appearance: Alert, No Apparent Distress Eye Exam: Bilateral Eye: PERRL Nose: Normal Inspection, Normal Mucosa, No Blood Throat/Mouth: Normal Inspection, Normal Lips, Normal Teeth, Normal Gums Head: Atraumatic, Normocephalic Neck: Normal Inspection, Supple, Non-Tender, Full Range of Motion Respiratory/Chest: No Respiratory Distress, Lungs Clear, Normal Breath Sounds, No Accessory Muscle Use Cardiovascular: Normal Peripheral Pulses, Regular Rate, Rhythm, No Edema, No Gallop, No JVD, No Murmur, No Rub GI/Abdominal: Normal Bowel Sounds, Soft, Non-Tender, No Organomegaly, No Distention, No Abnormal Bruit (Female) Exam: Normal External Exam, Normal Speculum Exam, Normal Bimanual Exam Rectal (Female) Exam: Normal Exam Back Exam: Normal Inspection Extremities: Normal Inspection Neurological: Alert, Oriented, CN II-XII Intact, Normal Cognition, Normal Gait Psychiatric: Normal Affect, Normal Mood Skin Exam: Warm, Dry, Intact, Normal Color, No Rash Course - Vital Signs Text/Narrative:: viscous lidocaine toradol 60 mg IM x1 Last Recorded V/S: Last Vital Signs Temp 36.6 C 12/20/19 15:04 Pulse 102 H 12/20/19 15:04 Resp 18 12/20/19 15:04 BP 133/69 12/20/19 15:04 Pulse Ox 100 12/20/19 15:04 - Orders/Labs/Meds Meds: Medications Discontinued Medications Generic Name Dose Route Start Last Admin Trade Name Joseq PRN Reason Stop Dose Admin Ketorolac Tromethamine 60 mg 12/20/19 15:39 12/20/19 15:44 Toradol IM 12/20/19 15:40 60 mg ONETIME ONE Administration Lidocaine HCl 15 ml 12/20/19 15:27 12/20/19 15:34 Xylocaine 2% Viscous PO 12/20/19 15:28 15 ml ONETIME ONE Administration Departure - Departure Time of Disposition: 15:50 Disposition: Home, Self-Care 01 Condition: Good Clinical Impression: Pain - Discharge Information Prescriptions: Ketorolac [Toradol] 10 mg PO Q8H PRN #15 tab PRN Reason: Pain Instructions: Benzocaine mouth gel, ointment, solution, or dental paste Referrals: Chon Rojo MD [Primary Care Provider] - Forms: ED Department Discharge Additional Instructions: Pklease read discharge on dental pain gurgle with salt and water take toradol 10 mg with tylenol 1000 mg every 8 hours as needed for pain. Works best if you take them both at the same time follow up with your dentist [facility] Sepsis Event Note - Evaluation Sepsis Screening Result: No Definite Risk - Focused Exam Vital Signs: Vital Signs Temp Pulse Resp BP Pulse Ox 12/20/19 15:04 36.6 C 102 H 18 133/69 100 Date Exam was Performed: 12/20/19 Time Exam was Performed: 15:53
== END 2019-12-20 16:00 | disposition home or self-care (01) ==
LOC: FB.ED 14:59
DX: K08.89 Other specified disorders of teeth and supporting structures (principal); F41.9 Anxiety disorder, unspecified; F17.210 Nicotine dependence, cigarettes, uncomplicated; Z79.899 Other long term (current) drug therapy
CPT/HCPCS: 96372; 99282; A9270; J1885

== ENCOUNTER 2020-01-20 11:20 | Emergency (ER) | payer MEDICAID ==
[2020-01-20] MEDS ORDERED: Ketorolac 60 MG/2 ML SDV IM ONE (11:59)
[2020-01-20] MEDS ORDERED: Lidocaine 2% Viscous Solution 15 ML Cup PO ONE (12:00)
--- NOTE | 2020-01-20 13:08 | EDM.PDOC ---
ED HPI GENERAL MEDICAL PROBLEM - General Chief Complaint: General Stated Complaint: MOUTH PAIN Time Seen by Provider: 01/20/20 11:20 Source of Information: Reports: Patient History Limitations: Reports: No Limitations - History of Present Illness INITIAL COMMENTS - FREE TEXT/NARRATIVE: Patient presented to the ED because of dental pain. She is taking amoxicillin and clindamycin for a dental abscess. For pain she is taking ibuprofen. She is scheduled to see her dentist February 04, 2020. dental Pain Score (Numeric/FACES): 10 - Related Data Allergies Allergy/AdvReac Type Severity Reaction Status Date / Time No Known Allergies Allergy Verified 01/20/20 11:43 Home Meds: Home Meds Ibuprofen 800 mg PO Q8HR #30 tablet 05/30/15 [Rx] ClonazePAM [KlonoPIN] 0.5 mg PO BID PRN 04/07/19 [History] Gabapentin [Neurontin] 600 mg PO TID 04/07/19 [History] Albuterol Sulfate [Proair Hfa] 2 puff INH Q4HR PRN 01/20/20 [History] Meloxicam 15 mg PO DAILY 01/20/20 [History] Norethindrone 1 tab PO DAILY 01/20/20 [History] lamoTRIgine [Lamotrigine] 100 mg PO DAILY 01/20/20 [History] Past Medical History HEENT History: Reports: Impaired Vision JUICE TESTER History: Reports: , 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 Other Dermatologic History: 5 tattoos to the body surface - Infectious Disease History Infectious Disease History: Reports: Chicken Pox - Past Surgical History HEENT Surgical History: Reports: Oral Surgery Musculoskeletal Surgical History: Reports: None Social & Family History - Family History Family Medical History: Noncontributory - Tobacco Use Smoking Status *Q: Current Every Day Smoker Years of Tobacco use: 15 Packs/Tins Daily: 1 - Caffeine Use Caffeine Use: Reports: None Other Caffeine Use: 2 cups of coffee - Recreational Drug Use Recreational Drug Use: Yes Drug Use in Last 12 Months: No - Living Situation & Occupation Living situation: Reports: Single Occupation: Employed ED ROS GENERAL - Review of Systems Review Of Systems: See Below Constitutional: Reports: No Symptoms HEENT: Reports: Dental Pain Respiratory: Reports: No Symptoms Cardiovascular: Reports: No Symptoms Endocrine: Reports: No Symptoms GI/Abdominal: Reports: No Symptoms : Reports: No Symptoms Musculoskeletal: Reports: No Symptoms Skin: Reports: No Symptoms Neurological: Reports: No Symptoms ED EXAM, GENERAL - Physical Exam Exam: See Below Exam Limited By: No Limitations General Appearance: Alert, No Apparent Distress Eye Exam: Bilateral Eye: PERRL Ears: Normal External Exam, Normal Canal Nose: Normal Inspection, Normal Mucosa, No Blood Throat/Mouth: Normal Inspection, Normal Lips, Other (multiple dental caries) Head: Atraumatic, Normocephalic Neck: Normal Inspection, Supple, Non-Tender, Full Range of Motion Respiratory/Chest: No Respiratory Distress, Lungs Clear, Normal Breath Sounds Cardiovascular: Normal Peripheral Pulses, Regular Rate, Rhythm, No Edema, No Gallop, No JVD, No Murmur, No Rub GI/Abdominal: Normal Bowel Sounds, Soft, Non-Tender, No Organomegaly Psychiatric: Normal Affect Skin Exam: Warm Course - Vital Signs Text/Narrative:: I discussed with Carola that I will give her toradol IM and visscous lidocaine bust she refused. I'm not comfortable giving her narcotics considering her history of drug use. She left and went AMA. - Orders/Labs/Meds Meds: Medications Discontinued Medications Generic Name Dose Route Start Last Admin Trade Name Joseq PRN Reason Stop Dose Admin Ketorolac Tromethamine 60 mg 01/20/20 11:59 Toradol IM 01/20/20 12:00 ONETIME ONE Lidocaine HCl 15 ml 01/20/20 12:00 Xylocaine 2% Viscous PO 01/20/20 12:01 ONETIME ONE Departure - Departure Time of Disposition: 13:00 Disposition: Against Medical Advice 07 Condition: Good Clinical Impression: Abscess, dental - Discharge Information Referrals: Chon Rojo MD [Primary Care Provider] - Forms: ED Department Discharge Sepsis Event Note - Evaluation Sepsis Screening Result: No Definite Risk
== END 2020-01-20 12:05 | disposition left against medical advice (07) ==
LOC: FB.ED 11:20
DX: K04.7 Periapical abscess without sinus (principal); K02.9 Dental caries, unspecified; F41.9 Anxiety disorder, unspecified; F32.9 Major depressive disorder, single episode, unspecified; F17.210 Nicotine dependence, cigarettes, uncomplicated; Z79.899 Other long term (current) drug therapy
CPT/HCPCS: 99282

== ENCOUNTER 2020-04-06 12:33 | Emergency (ER) | payer MEDICAID ==
[2020-04-06 12:55] VITALS: BP 124/88; PULSE 84
[2020-04-06] MEDS ORDERED: Ketorolac 60 MG/2 ML SDV IM ONE (13:13)
--- NOTE | 2020-04-06 13:19 | EDM.PDOC ---
ED HPI GENERAL MEDICAL PROBLEM - General Chief Complaint: Lower Extremity Injury/Pain Stated Complaint: RT FOOT PAIN Time Seen by Provider: 04/06/20 13:10 Source of Information: Reports: Patient History Limitations: Reports: No Limitations - History of Present Illness INITIAL COMMENTS - FREE TEXT/NARRATIVE: 29 yo female here with foot pain for about a month and a half. Saw Dr. Rojo recently and was told that a recent foot X-ray showed a "hair-line" fracture. Was given an Rx for tramadol that she could not get filled as her insurance would not cover it. Says he daughter stepped on her foot since then and has increased pain. Has an ortho boot type splint that she is wearing with some relief. Onset: Sudden Duration: Week(s): (6), Waxing/Waning Location: Reports: Lower Extremity, Right Quality: Reports: Stabbing (with walking) Severity: Moderate Improves with: Reports: Immobilization Worsens with: Reports: Movement Context: Reports: Trauma Associated Symptoms: Reports: No Other Symptoms Treatments INSOLE AND OUTSOLE SPLITTER: Reports: Other (see below) ("boot") R foot Pain Score (Numeric/FACES): 9 - Related Data Allergies Allergy/AdvReac Type Severity Reaction Status Date / Time No Known Allergies Allergy Verified 04/06/20 12:50 Home Meds: Home Meds Ibuprofen 800 mg PO Q8HR #30 tablet 05/30/15 [Rx] ClonazePAM [KlonoPIN] 0.5 mg PO BID PRN 04/07/19 [History] Gabapentin [Neurontin] 600 mg PO TID 04/07/19 [History] lamoTRIgine [Lamotrigine] 100 mg PO DAILY 01/20/20 [History] traMADol HCl [Tramadol HCl] 5 mg Q6H PRN 04/06/20 [History] Past Medical History HEENT History: Reports: Impaired Vision 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 Other Dermatologic History: 5 tattoos to the body surface - Infectious Disease History Infectious Disease History: Reports: Chicken Pox - Past Surgical History HEENT Surgical History: Reports: Oral Surgery Musculoskeletal Surgical History: Reports: None Social & Family History - Family History Family Medical History: Noncontributory - Tobacco Use Smoking Status *Q: Current Every Day Smoker Years of Tobacco use: 13 Packs/Tins Daily: 1.5 - Caffeine Use Caffeine Use: Reports: Coffee, Energy Drinks, Soda Other Caffeine Use: 2 cups of coffee - Recreational Drug Use Recreational Drug Use: Yes Recreational Drug Type: Reports: Marijuana/Hashish Other Recreational Drug Type: Has not used in past 2 yrs. Recreational Drug Use Frequency: Not Used In Over 6 Months - Living Situation & Occupation Living situation: Reports: Single Occupation: Employed Review of Systems - Review of Systems Review Of Systems: See Below Constitutional: Reports: No Symptoms Musculoskeletal: Reports: Foot Pain (right) Skin: Reports: No Symptoms Neurological: Reports: No Symptoms ED EXAM, GENERAL - Physical Exam Exam: See Below Exam Limited By: No Limitations General Appearance: Alert, WD/WN, No Apparent Distress Extremities: Normal Inspection, Normal Range of Motion, No Pedal Edema. No: Pedal Edema, Limited Range of Motion, Increased Warmth, Redness Neurological: Alert, Oriented, CN II-XII Intact, Normal Cognition, No Motor/ Sensory Deficits Psychiatric: Normal Affect, Normal Mood Skin Exam: Warm, Dry, Intact, Normal Color, No Rash Course - Vital Signs Last Recorded V/S: Last Vital Signs Temp 36.8 C 04/06/20 12:35 Pulse 84 04/06/20 12:35 Resp 18 04/06/20 12:35 BP 124/88 04/06/20 12:35 Pulse Ox 100 04/06/20 12:35 - Orders/Labs/Meds Orders: Active Orders 24 hr Category Date Time Status Ketorolac [Toradol] Med 04/06/20 13:13 Once 60 mg IM ONETIME ONE Medication Orders Ketorolac Tromethamine (Toradol) 60 mg IM ONETIME ONE Stop: 04/06/20 13:14 Meds: Medications Generic Name Dose Route Start Last Admin Trade Name Freq PRN Reason Stop Dose Admin Ketorolac Tromethamine 60 mg 04/06/20 13:13 Toradol IM 04/06/20 13:14 ONETIME ONE Departure - Departure Time of Disposition: 13:30 Disposition: Home, Self-Care 01 Condition: Good Clinical Impression: Right foot pain - Discharge Information *PRESCRIPTION DRUG MONITORING PROGRAM REVIEWED*: No *COPY OF PRESCRIPTION DRUG MONITORING REPORT IN PATIENT JOSEMANUEL: No Instructions: Foot Pain Referrals: Chon Rojo MD [Primary Care Provider] - Additional Instructions: Continue wearing your orthopedic boot. Take acetaminophen up to 1000 mg every 6 hrs for pain relief. Add ibuprofen 600 mg every 6 hrs with food, next dose after 7:30 pm tonight. Follow up with either your family doctor OR orthopedics for further evaluation and treatment. Elevation above your heart is best for reduction of swelling. Sepsis Event Note (ED) - Evaluation Sepsis Screening Result: No Definite Risk - Focused Exam Vital Signs: Vital Signs Temp Pulse Resp BP Pulse Ox 04/06/20 12:35 36.8 C 84 18 124/88 100 - My Orders Last 24 Hours: My Active Orders 04/06/20 13:13 Ketorolac [Toradol] 60 mg IM ONETIME ONE - Assessment/Plan Last 24 Hours: My Active Orders 04/06/20 13:13 Ketorolac [Toradol] 60 mg IM ONETIME ONE
== END 2020-04-06 13:30 | disposition home or self-care (01) ==
LOC: FB.ED 12:33
DX: M79.671 Pain in right foot (principal); F41.9 Anxiety disorder, unspecified; F31.9 Bipolar disorder, unspecified; F17.210 Nicotine dependence, cigarettes, uncomplicated; Z79.899 Other long term (current) drug therapy
CPT/HCPCS: 96372; 99283; J1885

== ENCOUNTER 2020-05-02 21:19 | Emergency (ER) | payer MEDICAID ==
[2020-05-02] MEDS ORDERED: Lidocaine 2% with EPINEPHrine 1:100,000 20 ML MDV INFILT ONE (21:20)
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
[2020-05-02 22:36] VITALS: PULSE 88
[2020-05-02 22:52] VITALS: BP 102/66
== END 2020-05-02 23:20 | disposition home or self-care (01) ==
LOC: FB.ED 21:19
DX: S09.90XA Unspecified injury of head, initial encounter (principal); S01.81XA Laceration without foreign body of other part of head, initial encounter; S90.31XA Contusion of right foot, initial encounter; F10.220 Alcohol dependence with intoxication, uncomplicated; F41.9 Anxiety disorder, unspecified; F31.9 Bipolar disorder, unspecified; F17.200 Nicotine dependence, unspecified, uncomplicated; Z79.899 Other long term (current) drug therapy; Y04.0XXA Assault by unarmed brawl or fight, initial encounter
CPT/HCPCS: 12015; 70450; 72125; 73630-RT; 99283